=== PATIENT | male | born 1940 | race Caucasian/White ===

== ENCOUNTER 2019-08-08 17:49 | Inpatient (IN) ==
[2019-08-08] MEDS ORDERED: Furosemide 40 MG TABLET PO PRN (18:04)
[2019-08-08] MEDS: carvediloL 25 MG TABLET PO SCH (20:35)
[2019-08-08] MEDS: Apixaban 5 MG TABLET PO SCH (20:35)
[2019-08-08] MEDS ORDERED: Insulin DETEMIR 100 UNIT/ML per UNIT SQ ONE (21:00)
[2019-08-09 07:12] LABS: Basophils % 0.2 %; Eosinophils # 0.1 K/mcL (0.0-0.6); Hematocrit 36.5 % (37.5-50.1); Hemoglobin 12.3 g/dL (12.9-16.9); Immature Granulocytes % 0.7 % (0-4); Lymphocytes # 0.3 K/mcL (0.6-4.6); Lymphocytes % 7.2 %; Mean Corpuscular HGB Conc 33.7 g/dL (31.6-35.5); Mean Corpuscular Hemoglobin 33.1 pg (28.0-33.3); Mean Corpuscular Volume 98.1 fL (83.0-100.0); Mean Platelet Volume 10.3 fL (9.4-12.4); Monocytes # 0.4 K/mcL (0.0-1.3); Neutrophils # 3.7 K/mcL (1.6-8.9); Platelet Count 111 K/mcL (140-400); Red Blood Count 3.72 M/mcL (4.19-5.50); Red Cell Distribution Width 13.2 % (11.5-14.5); Segmented Neutrophils % 80.9 %; White Blood Count 4.6 K/mcL (4.3-11.1)
[2019-08-09 07:34] LABS: BUN/Creatinine Ratio 16 (6-26); Blood Urea Nitrogen 18 mg/dL (8-23); Calcium 8.1 mg/dL (8.6-10.3); Carbon Dioxide 30 mEq/L (23-29); Chloride 104 mEq/L (98-107); Glucose 127 mg/dL (70-105); Osmolality,Calculated 293 (280-300); Potassium 3.9 mEq/L (3.5-5.1); Sodium 140 mEq/L (136-145); eGFR For African Americans > 60 (> 60); eGFR For Non-African Americans > 60 (> 60)
[2019-08-09] MEDS: Insulin DETEMIR 100 UNIT/ML X5UNITS SQ SCH ×2 (10:24→20:24)
[2019-08-09] MEDS: carvediloL 25 MG TABLET PO SCH ×2 (10:24→20:24)
[2019-08-09] MEDS: *HR* Amiodarone 200 MG TABLET PO SCH (10:24)
[2019-08-09] MEDS: Apixaban 5 MG TABLET PO SCH ×2 (10:25→20:24)
[2019-08-10 06:53] LABS: Basophils % 0.2 %; Eosinophils # 0.1 K/mcL (0.0-0.6); Eosinophils % 1.9 %; Hematocrit 35.7 % (37.5-50.1); Hemoglobin 12.3 g/dL (12.9-16.9); Immature Granulocytes % 0.5 % (0-4); Lymphocytes # 0.3 K/mcL (0.6-4.6); Lymphocytes % 7.6 %; Mean Corpuscular HGB Conc 34.5 g/dL (31.6-35.5); Mean Corpuscular Hemoglobin 32.9 pg (28.0-33.3); Mean Corpuscular Volume 95.5 fL (83.0-100.0); Mean Platelet Volume 10.2 fL (9.4-12.4); Monocytes # 0.4 K/mcL (0.0-1.3); Neutrophils # 3.4 K/mcL (1.6-8.9); Platelet Count 128 K/mcL (140-400); Red Blood Count 3.74 M/mcL (4.19-5.50); Segmented Neutrophils % 80.8 %; White Blood Count 4.2 K/mcL (4.3-11.1)
[2019-08-10 07:03] LABS: Alanine Aminotransferase 18 Units/L (7-52); Albumin 3.2 g/dL (3.5-5.7); Albumin/Globulin Ratio 1.3 (1.1-2.2); Alkaline Phosphatase 74 Units/L (34-104); Aspartate Amino Transferase 22 Units/L (13-39); BUN/Creatinine Ratio 14 (6-26); Bilirubin,Total 0.9 mg/dL (0.3-1.0); Blood Urea Nitrogen 15 mg/dL (8-23); Calcium 8.1 mg/dL (8.6-10.3); Carbon Dioxide 30 mEq/L (23-29); Chloride 102 mEq/L (98-107); Globulin 2.4 g/dL (2.4-3.5); Glucose 101 mg/dL (70-105); Osmolality,Calculated 287 (280-300); Sodium 138 mEq/L (136-145); Total Protein 5.6 g/dL (6.4-8.9); eGFR For African Americans > 60 (> 60); eGFR For Non-African Americans > 60 (> 60)
[2019-08-10] MEDS: Insulin DETEMIR 100 UNIT/ML X5UNITS SQ SCH ×2 (08:14→20:24)
[2019-08-10] MEDS: Apixaban 5 MG TABLET PO SCH ×2 (08:14→20:24)
[2019-08-10] MEDS: carvediloL 25 MG TABLET PO SCH ×2 (08:14→20:24)
[2019-08-10] MEDS: *HR* Amiodarone 200 MG TABLET PO SCH (08:14)
[2019-08-10] MEDS ORDERED: Ondansetron ODT 4 MG TAB.RAPDIS SL PRN (09:48)
[2019-08-11] MEDS: *HR* Amiodarone 200 MG TABLET PO SCH (08:48)
[2019-08-11] MEDS: carvediloL 25 MG TABLET PO SCH ×2 (08:48→21:16)
[2019-08-11] MEDS: Apixaban 5 MG TABLET PO SCH ×2 (08:48→21:16)
[2019-08-11] MEDS: Insulin DETEMIR 100 UNIT/ML X5UNITS SQ SCH ×2 (08:51→21:16)
[2019-08-12 06:31] LABS: Basophils % 0.3 %; Eosinophils # 0.1 K/mcL (0.0-0.6); Eosinophils % 1.3 %; Hematocrit 37.6 % (37.5-50.1); Hemoglobin 12.9 g/dL (12.9-16.9); Immature Granulocytes % 0.5 % (0-4); Lymphocytes # 0.3 K/mcL (0.6-4.6); Lymphocytes % 8.4 %; Mean Corpuscular HGB Conc 34.3 g/dL (31.6-35.5); Mean Corpuscular Hemoglobin 32.9 pg (28.0-33.3); Mean Corpuscular Volume 95.9 fL (83.0-100.0); Mean Platelet Volume 10.2 fL (9.4-12.4); Monocytes # 0.4 K/mcL (0.0-1.3); Monocytes % 10.2 %; Neutrophils # 2.9 K/mcL (1.6-8.9); Platelet Count 138 K/mcL (140-400); Red Blood Count 3.92 M/mcL (4.19-5.50); Red Cell Distribution Width 13.1 % (11.5-14.5); Segmented Neutrophils % 79.3 %; White Blood Count 3.7 K/mcL (4.3-11.1)
[2019-08-12 06:55] LABS: BUN/Creatinine Ratio 11 (6-26); Blood Urea Nitrogen 11 mg/dL (8-23); Calcium 8.6 mg/dL (8.6-10.3); Carbon Dioxide 33 mEq/L (23-29); Chloride 101 mEq/L (98-107); Glucose 83 mg/dL (70-105); Magnesium 2.1 mg/dL (1.6-2.6); Osmolality,Calculated 289 (280-300); Sodium 140 mEq/L (136-145); eGFR For African Americans > 60 (> 60); eGFR For Non-African Americans > 60 (> 60)
[2019-08-12] MEDS: Insulin DETEMIR 100 UNIT/ML X5UNITS SQ SCH ×2 (09:25→19:58)
[2019-08-12] MEDS: carvediloL 25 MG TABLET PO SCH ×2 (09:25→19:58)
[2019-08-12] MEDS: *HR* Amiodarone 200 MG TABLET PO SCH (09:25)
[2019-08-12] MEDS: Apixaban 5 MG TABLET PO SCH ×2 (09:25→19:57)
[2019-08-13] MEDS: Insulin DETEMIR 100 UNIT/ML X5UNITS SQ SCH ×2 (09:23→20:46)
[2019-08-13] MEDS: carvediloL 25 MG TABLET PO SCH ×2 (09:59→19:42)
[2019-08-13] MEDS: *HR* Amiodarone 200 MG TABLET PO SCH (10:00)
[2019-08-13] MEDS: Apixaban 5 MG TABLET PO SCH ×2 (10:00→19:42)
[2019-08-14 05:30] LABS: Basophils % 0.3 %; Eosinophils # 0.1 K/mcL (0.0-0.6); Eosinophils % 1.6 %; Hematocrit 36.2 % (37.5-50.1); Hemoglobin 12.6 g/dL (12.9-16.9); Immature Granulocytes % 0.8 % (0-4); Lymphocytes # 0.3 K/mcL (0.6-4.6); Lymphocytes % 8.7 %; Mean Corpuscular HGB Conc 34.8 g/dL (31.6-35.5); Mean Corpuscular Volume 94.8 fL (83.0-100.0); Mean Platelet Volume 9.9 fL (9.4-12.4); Monocytes # 0.5 K/mcL (0.0-1.3); Monocytes % 12.6 %; Neutrophils # 2.8 K/mcL (1.6-8.9); Platelet Count 148 K/mcL (140-400); Red Blood Count 3.82 M/mcL (4.19-5.50); Red Cell Distribution Width 13.1 % (11.5-14.5); White Blood Count 3.7 K/mcL (4.3-11.1)
[2019-08-14 05:51] LABS: BUN/Creatinine Ratio 10 (6-26); Blood Urea Nitrogen 11 mg/dL (8-23); Calcium 8.5 mg/dL (8.6-10.3); Carbon Dioxide 31 mEq/L (23-29); Chloride 101 mEq/L (98-107); Glucose 121 mg/dL (70-105); Osmolality,Calculated 287 (280-300); Potassium 3.8 mEq/L (3.5-5.1); Sodium 138 mEq/L (136-145); eGFR For African Americans > 60 (> 60); eGFR For Non-African Americans > 60 (> 60)
[2019-08-14] MEDS: Insulin DETEMIR 100 UNIT/ML X5UNITS SQ SCH ×2 (08:13→20:54)
[2019-08-14] MEDS: Apixaban 5 MG TABLET PO SCH ×2 (08:13→20:53)
[2019-08-14] MEDS: *HR* Amiodarone 200 MG TABLET PO SCH (08:13)
[2019-08-14] MEDS: carvediloL 25 MG TABLET PO SCH ×2 (08:13→20:53)
[2019-08-15] MEDS: *HR* Amiodarone 200 MG TABLET PO SCH (09:35)
[2019-08-15] MEDS: Apixaban 5 MG TABLET PO SCH ×2 (09:35→19:54)
[2019-08-15] MEDS: carvediloL 25 MG TABLET PO SCH ×2 (09:35→19:54)
[2019-08-15] MEDS: Insulin DETEMIR 100 UNIT/ML X5UNITS SQ SCH ×2 (09:35→19:54)
[2019-08-16] MEDS: Insulin DETEMIR 100 UNIT/ML X5UNITS SQ SCH ×2 (08:26→20:00)
[2019-08-16] MEDS: carvediloL 25 MG TABLET PO SCH ×2 (08:26→20:00)
[2019-08-16] MEDS: *HR* Amiodarone 200 MG TABLET PO SCH (08:26)
[2019-08-16] MEDS: Apixaban 5 MG TABLET PO SCH ×2 (08:26→20:00)
[2019-08-17] MEDS: *HR* Amiodarone 200 MG TABLET PO SCH (08:45)
[2019-08-17] MEDS: carvediloL 25 MG TABLET PO SCH ×2 (08:45→21:32)
[2019-08-17] MEDS: Apixaban 5 MG TABLET PO SCH ×2 (08:45→21:33)
[2019-08-17] MEDS: Insulin DETEMIR 100 UNIT/ML X5UNITS SQ SCH ×2 (08:45→21:35)
[2019-08-18 06:16] VITALS: BP 134/73
[2019-08-18] MEDS: Apixaban 5 MG TABLET PO SCH (09:29)
[2019-08-18] MEDS: *HR* Amiodarone 200 MG TABLET PO SCH (09:29)
[2019-08-18] MEDS: Insulin DETEMIR 100 UNIT/ML X5UNITS SQ SCH (09:29)
[2019-08-18] MEDS: carvediloL 25 MG TABLET PO SCH (09:29)
== END 2019-08-18 10:26 | disposition home health service (06) | DRG 177 ==
LOC: INPPIK 18:23
PROVIDERS: ADMIT Family Medicine; ATTEND Family Medicine

== ENCOUNTER 2019-11-25 14:27 | Inpatient (IN) ==
[2019-11-25] MEDS ORDERED: *HR* Dextrose 50 % in Water (Vial) 50 ML VIAL IVP PRN (15:59)
[2019-11-25] MEDS ORDERED: D5% in Water 1,000 ML IVC PRN (15:59)
[2019-11-25] MEDS ORDERED: Dextrose Gel 15 GM/37.5 ML TUBE PO PRN ×2 (15:59)
[2019-11-25] MEDS: Insulin LISPRO 300 UNITS/3 ML VIAL SQ SCH ×2 (19:00→21:37)
[2019-11-25 20:39] LABS: Estimated Average Glucose 120 mg/dl
[2019-11-25] MEDS: Metoprolol XL (24 HR) Succ 25 MG TAB.ER.24H PO SCH (21:36)
[2019-11-25] MEDS: Insulin DETEMIR 100 UNIT/ML X5UNITS SQ SCH (21:39)
[2019-11-26] MEDS: Acetaminophen 325 MG TABLET PO PRN (03:51)
[2019-11-26 06:14] LABS: Basophils % 0.2 %; Eosinophils # 0.1 K/mcL (0.0-0.6); Eosinophils % 2.2 %; Hematocrit 37.6 % (37.5-50.1); Hemoglobin 12.5 g/dL (12.9-16.9); Immature Granulocytes % 0.4 % (0-4); Lymphocytes # 0.4 K/mcL (0.6-4.6); Lymphocytes % 7.8 %; Mean Corpuscular HGB Conc 33.2 g/dL (31.6-35.5); Mean Corpuscular Hemoglobin 31.8 pg (28.0-33.3); Mean Corpuscular Volume 95.7 fL (83.0-100.0); Mean Platelet Volume 9.5 fL (9.4-12.4); Monocytes # 0.6 K/mcL (0.0-1.3); Monocytes % 11.4 %; Neutrophils # 4.2 K/mcL (1.6-8.9); Platelet Count 165 K/mcL (140-400); Red Blood Count 3.93 M/mcL (4.19-5.50); Red Cell Distribution Width 12.9 % (11.5-14.5); White Blood Count 5.4 K/mcL (4.3-11.1)
[2019-11-26 06:57] LABS: BUN/Creatinine Ratio 23 (6-26); Blood Urea Nitrogen 25 mg/dL (8-23); Calcium 9.1 mg/dL (8.6-10.3); Carbon Dioxide 37 mEq/L (23-29); Chloride 95 mEq/L (98-107); Glucose 135 mg/dL (70-105); Osmolality,Calculated 294 (280-300); Potassium 4.4 mEq/L (3.5-5.1); Sodium 139 mEq/L (136-145); eGFR For African Americans > 60 (> 60); eGFR For Non-African Americans > 60 (> 60)
[2019-11-26] MEDS: Insulin LISPRO 300 UNITS/3 ML VIAL SQ SCH ×4 (07:45→21:11)
[2019-11-26] MEDS: *HR* Amiodarone 200 MG TABLET PO SCH (09:33)
[2019-11-26] MEDS: Aspirin Enteric Coated 81 MG Tablet PO SCH (09:33)
[2019-11-26] MEDS: Metoprolol XL (24 HR) Succ 25 MG TAB.ER.24H PO SCH ×2 (09:33→21:10)
[2019-11-26] MEDS: Furosemide 40 MG TABLET PO SCH (09:33)
[2019-11-26] MEDS: Insulin DETEMIR 100 UNIT/ML X5UNITS SQ SCH ×2 (09:34→21:11)
[2019-11-26] MEDS ORDERED: Bisacodyl 10 MG RECTAL SUPPOSITORY RC ONE (12:29)
[2019-11-26] MEDS: Silver Sulfadiazine 50 GM TUBE TP SCH (13:00)
[2019-11-27] MEDS: Metoprolol XL (24 HR) Succ 25 MG TAB.ER.24H PO SCH ×2 (08:00→20:31)
[2019-11-27] MEDS: Aspirin Enteric Coated 81 MG Tablet PO SCH (08:00)
[2019-11-27] MEDS: Furosemide 40 MG TABLET PO SCH (08:01)
[2019-11-27] MEDS: *HR* Amiodarone 200 MG TABLET PO SCH (08:01)
[2019-11-27] MEDS: Acetaminophen 325 MG TABLET PO PRN (08:13)
[2019-11-27] MEDS: Insulin LISPRO 300 UNITS/3 ML VIAL SQ SCH ×4 (08:16→20:31)
[2019-11-27] MEDS: Insulin DETEMIR 100 UNIT/ML X5UNITS SQ SCH ×2 (09:31→20:32)
[2019-11-27] MEDS: Silver Sulfadiazine 50 GM TUBE TP SCH (10:36)
[2019-11-28] MEDS: Acetaminophen 325 MG TABLET PO PRN (08:14)
[2019-11-28] MEDS: Aspirin Enteric Coated 81 MG Tablet PO SCH (08:16)
[2019-11-28] MEDS: Furosemide 40 MG TABLET PO SCH (08:16)
[2019-11-28] MEDS: *HR* Amiodarone 200 MG TABLET PO SCH (08:16)
[2019-11-28] MEDS: Insulin DETEMIR 100 UNIT/ML X5UNITS SQ SCH ×2 (08:17→20:21)
[2019-11-28] MEDS: Insulin LISPRO 300 UNITS/3 ML VIAL SQ SCH ×4 (08:18→20:21)
[2019-11-28] MEDS: Silver Sulfadiazine 50 GM TUBE TP SCH (08:28)
[2019-11-28] MEDS: Metoprolol XL (24 HR) Succ 25 MG TAB.ER.24H PO SCH ×2 (08:28→20:21)
[2019-11-29] MEDS: Insulin LISPRO 300 UNITS/3 ML VIAL SQ SCH ×4 (07:35→20:31)
[2019-11-29] MEDS: Aspirin Enteric Coated 81 MG Tablet PO SCH (08:53)
[2019-11-29] MEDS: Furosemide 40 MG TABLET PO SCH (08:53)
[2019-11-29] MEDS: *HR* Amiodarone 200 MG TABLET PO SCH (08:53)
[2019-11-29] MEDS: Metoprolol XL (24 HR) Succ 25 MG TAB.ER.24H PO SCH (08:53)
[2019-11-29] MEDS: Insulin DETEMIR 100 UNIT/ML X5UNITS SQ SCH ×2 (08:55→20:30)
[2019-11-29] MEDS: Silver Sulfadiazine 50 GM TUBE TP SCH (08:58)
[2019-11-29] MEDS: Acetaminophen 325 MG TABLET PO PRN (20:30)
[2019-11-30] MEDS: Aspirin Enteric Coated 81 MG Tablet PO SCH (08:18)
[2019-11-30] MEDS: *HR* Amiodarone 200 MG TABLET PO SCH (08:18)
[2019-11-30] MEDS: Furosemide 40 MG TABLET PO SCH (08:19)
[2019-11-30] MEDS: Insulin DETEMIR 100 UNIT/ML X5UNITS SQ SCH ×2 (08:19→21:40)
[2019-11-30] MEDS: Insulin LISPRO 300 UNITS/3 ML VIAL SQ SCH ×4 (11:01→21:40)
[2019-11-30] MEDS: Silver Sulfadiazine 50 GM TUBE TP SCH (15:05)
[2019-12-01] MEDS: Insulin DETEMIR 100 UNIT/ML X5UNITS SQ SCH ×2 (08:39→21:12)
[2019-12-01] MEDS: Aspirin Enteric Coated 81 MG Tablet PO SCH (08:39)
[2019-12-01] MEDS: Furosemide 40 MG TABLET PO SCH (08:39)
[2019-12-01] MEDS: *HR* Amiodarone 200 MG TABLET PO SCH (08:39)
[2019-12-01] MEDS: Insulin LISPRO 300 UNITS/3 ML VIAL SQ SCH ×4 (11:43→21:12)
[2019-12-01] MEDS: Silver Sulfadiazine 50 GM TUBE TP SCH (18:21)
[2019-12-02] MEDS: Insulin DETEMIR 100 UNIT/ML X5UNITS SQ SCH ×2 (08:27→20:27)
[2019-12-02] MEDS: Furosemide 40 MG TABLET PO SCH (08:27)
[2019-12-02] MEDS: *HR* Amiodarone 200 MG TABLET PO SCH (08:27)
[2019-12-02] MEDS: Aspirin Enteric Coated 81 MG Tablet PO SCH (09:02)
[2019-12-02] MEDS: Insulin LISPRO 300 UNITS/3 ML VIAL SQ SCH ×4 (10:57→20:28)
[2019-12-02] MEDS: Silver Sulfadiazine 50 GM TUBE TP SCH (11:51)
[2019-12-02] MEDS ORDERED: Methyl Salicylate/Menthol 57 APPL/57 GM TUBE TP PRN (15:07)
[2019-12-02] MEDS: Acetaminophen 325 MG TABLET PO PRN (20:33)
[2019-12-03] MEDS: Insulin LISPRO 300 UNITS/3 ML VIAL SQ SCH ×4 (07:58→21:10)
[2019-12-03] MEDS: Aspirin Enteric Coated 81 MG Tablet PO SCH (08:45)
[2019-12-03] MEDS: *HR* Amiodarone 200 MG TABLET PO SCH (08:45)
[2019-12-03] MEDS: Furosemide 40 MG TABLET PO SCH (08:45)
[2019-12-03] MEDS: Insulin DETEMIR 100 UNIT/ML X5UNITS SQ SCH ×2 (08:48→21:10)
[2019-12-03] MEDS: Silver Sulfadiazine 50 GM TUBE TP SCH (08:48)
[2019-12-03] MEDS: Acetaminophen 325 MG TABLET PO PRN (21:10)
[2019-12-04 07:44] LABS: Hematocrit 38.6 % (37.5-50.1); Hemoglobin 13.1 g/dL (12.9-16.9); Mean Corpuscular HGB Conc 33.9 g/dL (31.6-35.5); Mean Corpuscular Hemoglobin 32.1 pg (28.0-33.3); Mean Corpuscular Volume 94.6 fL (83.0-100.0); Mean Platelet Volume 9.3 fL (9.4-12.4); Platelet Count 208 K/mcL (140-400); Red Blood Count 4.08 M/mcL (4.19-5.50); Red Cell Distribution Width 13.2 % (11.5-14.5); White Blood Count 4.7 K/mcL (4.3-11.1)
[2019-12-04 08:02] LABS: BUN/Creatinine Ratio 17 (6-26); Blood Urea Nitrogen 19 mg/dL (8-23); Calcium 8.8 mg/dL (8.6-10.3); Carbon Dioxide 30 mEq/L (23-29); Chloride 101 mEq/L (98-107); Glucose 110 mg/dL (70-105); Osmolality,Calculated 289 (280-300); Potassium 4.1 mEq/L (3.5-5.1); Sodium 138 mEq/L (136-145); eGFR For African Americans > 60 (> 60); eGFR For Non-African Americans > 60 (> 60)
[2019-12-04] MEDS: Insulin LISPRO 300 UNITS/3 ML VIAL SQ SCH ×4 (09:55→21:32)
[2019-12-04] MEDS: *HR* Amiodarone 200 MG TABLET PO SCH (09:55)
[2019-12-04] MEDS: Aspirin Enteric Coated 81 MG Tablet PO SCH (09:55)
[2019-12-04] MEDS: Furosemide 40 MG TABLET PO SCH (09:55)
[2019-12-04] MEDS: Insulin DETEMIR 100 UNIT/ML X5UNITS SQ SCH ×2 (09:55→21:32)
[2019-12-04] MEDS: Silver Sulfadiazine 50 GM TUBE TP SCH (09:59)
[2019-12-04] MEDS: Acetaminophen 325 MG TABLET PO PRN (23:43)
[2019-12-05 06:52] VITALS: BP 135/80
[2019-12-05] MEDS: *HR* Amiodarone 200 MG TABLET PO SCH (09:01)
[2019-12-05] MEDS: Insulin DETEMIR 100 UNIT/ML X5UNITS SQ SCH (09:01)
[2019-12-05] MEDS: Aspirin Enteric Coated 81 MG Tablet PO SCH (09:01)
[2019-12-05] MEDS: Furosemide 40 MG TABLET PO SCH (09:01)
== END 2019-12-05 09:50 | disposition home health service (06) | DRG 291 ==
LOC: INPPIK 16:56
PROVIDERS: ADMIT Family Medicine; ATTEND Family Medicine